=== PATIENT | male | born 1980 | race Caucasian/White ===

== ENCOUNTER 2019-11-24 17:10 | Emergency (ER) | payer OTHER ==
[~2019-11-24] VITALS: Ht 172.7 cm; Wt 104.3 kg
== END 2019-11-24 19:58 | disposition home or self-care (01) ==
LOC: ED 17:10
PROC: 0HQ1XZZ Repair Face Skin, External Approach (ICD-10-PCS; principal; 2019-11-24)
DX: S09.90XA Unspecified injury of head, initial encounter (principal); S01.112A Laceration without foreign body of left eyelid and periocular area, initial encounter; S16.1XXA Strain of muscle, fascia and tendon at neck level, initial encounter; Z91.048 Other nonmedicinal substance allergy status; W50.0XXA Accidental hit or strike by another person, initial encounter
CPT/HCPCS: 12011; 70450; 72125; 99284-25